=== PATIENT | female | born 1995 | race Hispanic/Latino ===

== ENCOUNTER 2018-12-02 12:19 | Inpatient (IN) | payer MEDICAID ==
[2018-12-02] MEDS ORDERED: LACTATED RINGERS 1,000 ML IV ONE (12:52)
[2018-12-02 13:19] LABS: Bilirubin,Urine NEG (Negative); Blood,Urine NEG (Negative); Color,Urine Yellow (Yellow); Protein,Urine <15 mg/dL mg/dL (Negative); Urobilinogen,Urine < 2.0 mg/dL (<2.0)
[2018-12-02] MEDS ORDERED: BRETHINE SUB-Q ONE (13:33)
[2018-12-02] MEDS ORDERED: TUCKS PAD TP PRN (16:02)
[2018-12-02] MEDS ORDERED: TYLENOL PO PRN (16:02)
[2018-12-02] MEDS ORDERED: MILK OF MAGNESIA PO PRN (16:02)
[2018-12-02] MEDS ORDERED: ZOFRAN IV PRN (16:02)
[2018-12-02] MEDS ORDERED: BENADRYL PO PRN (16:02)
[2018-12-02] MEDS ORDERED: MAGNESIUM SULFATE 4GM/100ML 4 GM/100 ML BAG IV ONE (16:06)
--- NOTE | 2018-12-02 16:14 | History and Physical Report ---
History of Present Illness Date of examination: 12/02/18 Chief complaint: labor contractions History of present illness: EDC Calculations by 1st trimester u/s 02/17/19 Past History : 3 Term Births: 0 Premature Births: 1 Living Children: 1 Para: 1 Mult. Births: 0 Prev : 0 Aborta: 1 Elect. Ab: 1 Spont. Ab: 0 Ectopics: 0 # 1 Delivery date: 2012 Weeks Gestation: 32 labor: yes Delivery type: Infant Sex: Male weight: 4lb3oz Comments: GDM # 2 Delivery date: 2013 Delivery type: EAB Past Medical History: Negative Past Medical History Past Surgical History: urethra stretched- as a baby & age 4 Past Medical History Anesthesia Complications: negative Anemia: negative Autoimmune Disorder: negative Bleeding Disorder: negative Blood Transfusions: negative Breast Disease: negative Diabetes: negative Heart Disease: negative Hypertension: negative Hepatitis/Liver Disease: negative Kidney Disease/UTI: negative Neurologic/Epilepsy/Migraines: negative Phlebitis/Varicosities: negative Psychiatric: negative Pulmonary Disease/Asthma: negative Thyroid Disease: negative Hospitalizations: negative Surgery (Non-cut out marker): urethra stretched- as a baby & age 4 Abnormal PAP: negative KATHARINE Exposure: negative Infertility: negative Uterine Anomaly: negative Uterine Surgery (not C/S): negative Other Gynecologic Problems: negative Medical History Comments: gestational diabetes Family Hx: mom- HTN dad-HTN Infection History Hx of STD: none HIV Risk Eval: low risk Hepatitis B Risk Eval: low risk Personal hx. of genital herpes: no Partner hx. of genital herpes: no Rash, Viral, or Febrile illness since last LMP? no Varicella/Chicken Pox Status: Immunized TB Risk: no Genetic History Congenital Heart Defect: Mom: no Dad: no Leander Disease: Mom: no Dad: no Thalassemia Mom: no Dad: no Neural Tube Defect Mom: no Dad: no Down's Syndrome Mom: yes Dad: no Comments: cousin Haim-Sachs Mom: no Dad: no Sickle Cell Disease/Trait Mom: no Dad: no Hemophilia Mom: no Dad: no Muscular Dystrophy Mom: no Dad: no Cystic Fibrosis Mom: yes Dad: no Comments: cousin Dick Chorea Mom: no Dad: no Mental Retardation Mom: no Dad: no Fragile X Mom: no Dad: no Other Genetic/Chromosomal Disorder Mom: no Dad: no Child w/other defect Mom: no Dad: no Enviromental Exposures Xray Exposure: no Medication, drug, or alcohol use since LMP: no Chemical/Other Exposure: no Exposure to Cat Liter: no Hx of Parvovirus (Fifth Disease): no Occupational Exposure to Children: none Active Medications (reviewed today): None Current Allergies (reviewed today): * LATEX (Critical) Past History Past Medical History: other (see HPI) Past Surgical History: other (see HPI) ABRASIVE WORKER History: other (see HPI) Family/Genetic History: other (see HPI) - Obstetrical History Expected Date of Delivery: 02/17/19 Actual Gestation: 29 Week(s) 0 Day(s) : 3 Para: 1 Hx # Term Pregnancies: 0 Number of Pregnancies: 1 Spontaneous Abortions: 0 Induced : 1 Number of Living Children: 1 Medications and Allergies Allergies Allergy/AdvReac Type Severity Reaction Status Date / Time latex Allergy Hives Verified 12/02/18 12:49 Home Medications Medication Instructions Recorded Confirmed Last Taken Type Hydroxyprogesterone Caproate 250 mg IM QWEEK 12/02/18 12/02/18 11/25/18 12:00 History [Antionette] 1 Vit-Fe Fumar-FA [ 1 tab PO QDAY 12/02/18 12/02/18 12/02/18 09:00 History Vitamin] 1 Active Meds: Active Medications Acetaminophen (Tylenol) 650 mg PO Q4H PRN PRN Reason: Pain MILD(1-3)/Fever >100.5/MCWILLIAMS Al Hydrox/Mg Hydrox/Simethicone (Alum-Mag Hydrox-Simeth [id number]/5ml) 30 ml PO Q6H PRN PRN Reason: Indigestion Betamethasone Acet/Betameth SodPhos (Celestone Soluspan) 12 mg IM Q24HR JUDY Stop: 12/04/18 10:01 Diphenhydramine HCl (Benadryl) 25 mg PO Q6H PRN PRN Reason: Itching Docusate Sodium (Colace) 100 mg PO Q12H PRN PRN Reason: Constipation Magnesium Sulfate (Magnesium Sulfate 40gm/1000ml) 40 gm in 1,000 mls @ 50 mls/hr IV DIRECT JUDY Magnesium Sulfate (Magnesium Sulfate 4gm/100ml) 4 gm in 100 mls @ 300 mls/hr IV ONCE ONE Stop: 12/02/18 16:25 Magnesium Hydroxide (Milk Of Magnesia) 30 ml PO QHS PRN PRN Reason: Laxative Effect Multivitamins/Iron/Calcium ( Vitamin) 1 each PO QDAY JUDY Ondansetron HCl (Zofran) 4 mg IV Q6H PRN PRN Reason: Nausea And Vomiting Witch Elle/Glycerin (Tucks Pad) 1 each TP PRN PRN PRN Reason: Hemorrhoids Zolpidem Tartrate (Ambien) 10 mg PO ONCE PRN PRN Reason: Sleep Review of Systems All systems: negative - Vital Signs Vital signs: Vital Signs Pulse BP 106 H 115/71 12/02/18 12:40 12/02/18 12:40 Temp Pulse Resp BP Pulse Ox 98.5 F 90 18 116/69 12/02/18 13:21 12/02/18 13:59 12/02/18 13:21 12/02/18 13:59 - Physical Exam Breasts: Positive: normal Cardiovascular: Regular rate Lungs: Positive: Clear to auscultation, Normal air movement Abdomen: Positive: normal appearance, soft, normal bowel sounds Genitourinary (Female): Positive: normal external genitalia, normal perenium Vulva: both: normal - Obstetrical Uterine Contraction Monitor Mode: External Cervical Dilatation: 1 (Per commercial account executive) Cervical Effacement Percentage: 0 station: -4 Uterine Contraction Pattern: Regular Uterine Tone Measurement Phase: Contraction Uterine Contraction Intensity: Mild Results Abnormal lab results 12/02/18 Range/Units 12:41 Urine pH 8.0 H (5.0-7.0) All other labs normal. Assessment and Plan 23y/o @ 29 weeks C/o ctx x 3 days, intercourse last night Currently receiving weekly 17OHP injections d/t hx 32wk ptd (due today, requested patient have family bring injection to hospital for administration) - Patient Problems (1) labor in third trimester Current Visit: Yes Status: Acute Qualifiers: labor delivery status: without delivery Qualified Code(s): O60.03 - labor without delivery, third trimester Plan to address problem: Dr. Prater consulted Magnesium sulfate steroids for lung maturity u/s for EFW/CL and presentation Pt to have family to bring in [place] injections ARNAUD for administration. Consult to [facility] (2) 29 weeks gestation of Current Visit: Yes Status: Acute
[2018-12-02] MEDS ORDERED: CELESTONE SOLUSPAN IM ONE (16:36)
[2018-12-02] MEDS: CELESTONE SOLUSPAN IM SCH (17:18)
[2018-12-02] MEDS: MAGNESIUM SULFATE 40GM/1000ML 40 GM/1,000 ML BAG IV SCH (18:09)
--- NOTE | 2018-12-02 18:25 | Event Note ---
Date: 12/02/18 Plan of care d/w pt and support persons. I d/w magnesium, calles cath placement and next steps in management. All questions were addressed and answered and pt agrees with plan of care.
--- NOTE | 2018-12-02 19:27 | Ultrasound Report ---
OBSTETRIC ULTRASOUND INDICATION: Evaluate cervical length, presentation COMPARISON: No prior relevant imaging studies are available for comparison. TECHNIQUE: Transabdominal imaging was performed. FINDINGS: Single viable intrauterine is identified. lie: Cephalic. Heart rate: 153 bpm. measurements are as follows: Biparietal diameter 7.4 cm, 29 weeks 5 days Head circumference 26.3 cm, 28 weeks 4 days Abdominal circumference 26.5 cm, 30 weeks 4 days Femur length 5.1 cm, 27 weeks 1 day Amniotic fluid index is 18.6 cm, within normal limits. No placental abnormalities are seen. Cervix i s closed measuring approximately 4 cm. CONCLUSION: Single viable intrauterine currently in cephalic position. Sonographic gestational age is 2 9 weeks, 0 days. Estimated weight at this time is 3 pounds, 0 ounces. Amniotic fluid inde x is within normal limits. Cervix is closed. Signer Name: Pancho Hallman MD Signed: 12/02/2018 7:23 PM Workstation Name: [id number]
[2018-12-02] MEDS ORDERED: TYLENOL PO ONE (20:10)
[2018-12-02 21:06] LABS: Hematocrit 37.3 % (30.3-42.9); Hemoglobin 12.3 gm/dl (10.1-14.3); Mean Corpuscular HGB Conc 33 % (30-34); Mean Corpuscular Volume 90 fl (79-97); Platelet Count 226 K/mm3 (140-440); Red Blood Count 4.17 M/mm3 (3.65-5.03); Red Cell Distribution Width 14.1 % (13.2-15.2)
[2018-12-02] MEDS: ALUM-MAG HYDROX-SIMETH 200-200-20MG/5ML PO PRN (21:35)
[2018-12-02] MEDS: AMBIEN PO PRN (21:38)
[2018-12-02 22:19] LABS: Basophils % (Manual) 0 % (0.0-1.8); Eosinophils % (Manual) 0 % (0.0-4.3); RBC Morphology Normal; Total Cells Counted 100
[2018-12-03] MEDS ORDERED: LACTATED RINGERS 1,000 ML ONE ×2 (05:32→19:54)
--- NOTE | 2018-12-03 08:22 | Progress Note ---
Assessment and Plan Patient resting in bed, reports feeling well, but that contractions "still won't stop". Dr. Joy and myself at bedside discussing POC with patient. Questions encouraged and answered, patient verbalizes understanding and agrees to POC. (1) labor in third trimester Current Visit: Yes Status: Acute Qualifiers: labor delivery status: without delivery Qualified Code(s): O60.03 - labor without delivery, third trimester Plan to address problem: Magnesium sulfate currently infusing at 2gm/hr as ordered steroids for lung maturity. First dose given at 1718 on 12/02/18. Second dose due this evening u/s for EFW/CL and presentation shows cephalic, 3#, CHANDLER 18.6 Pt to have family to bring in [place] injections ARNAUD for administration. Reports they will seed cone picker injection from pt home this morning and bring here for administration today. Consult to [facility] pending (2) 29 weeks gestation of Current Visit: Yes Status: Acute - Patient Problems (1) 29 weeks gestation of Current Visit: Yes Status: Acute (2) labor in third trimester Current Visit: Yes Status: Acute Qualifiers: labor delivery status: without delivery Qualified Code(s): O60.03 - labor without delivery, third trimester Subjective - Subjective Date of service: 12/03/18 Principal diagnosis: labor/contractions Patient reports: movement normal, contractions ("irregular, sometimes every one minute, sometimes every ten minutes"), no new complaints, no loss of fluid, no vaginal bleeding Objective - Vital Signs Vital Signs: Vital Signs - 12hr 12/02/18 12/02/18 12/02/18 20:43 21:12 21:43 Temperature Pulse Rate 104 H 96 H 98 H Respiratory Rate Blood Pressure 110/72 123/64 100/58 Blood Pressure [Right] O2 Sat by Pulse Oximetry 12/02/18 12/02/18 12/02/18 22:12 22:42 23:12 Temperature Pulse Rate 101 H 98 H 102 H Respiratory Rate Blood Pressure 94/56 102/60 101/60 Blood Pressure [Right] O2 Sat by Pulse Oximetry 12/02/18 12/03/18 12/03/18 23:42 00:12 00:42 Temperature Pulse Rate 94 H 98 H 98 H Respiratory Rate Blood Pressure 95/52 103/65 113/74 Blood Pressure [Right] O2 Sat by Pulse Oximetry 12/03/18 12/03/18 12/03/18 01:12 01:42 02:12 Temperature Pulse Rate 95 H 96 H 96 H Respiratory Rate Blood Pressure 104/69 98/55 101/64 Blood Pressure [Right] O2 Sat by Pulse Oximetry 12/03/18 12/03/18 12/03/18 02:42 03:12 03:42 Temperature Pulse Rate 96 H 92 H 103 H Respiratory Rate Blood Pressure 106/67 97/56 107/63 Blood Pressure [Right] O2 Sat by Pulse Oximetry 12/03/18 12/03/18 12/03/18 04:12 04:42 05:12 Temperature Pulse Rate 87 101 H 96 H Respiratory Rate Blood Pressure 108/60 109/66 98/60 Blood Pressure [Right] O2 Sat by Pulse Oximetry 12/03/18 12/03/18 12/03/18 05:42 06:12 06:42 Temperature Pulse Rate 95 H 93 H 95 H Respiratory Rate Blood Pressure 100/61 127/68 115/62 Blood Pressure [Right] O2 Sat by Pulse Oximetry 12/03/18 12/03/18 12/03/18 07:13 07:43 07:45 Temperature 97.7 F Pulse Rate 100 H 93 H 93 H Respiratory 15 Rate Blood Pressure 134/71 120/62 Blood Pressure 120/62 [Right] O2 Sat by Pulse Oximetry 12/03/18 12/03/18 08:15 08:20 Temperature Pulse Rate 99 H 113 H Respiratory Rate Blood Pressure Blood Pressure [Right] O2 Sat by Pulse 98 96 Oximetry - Exam Cardiovascular: Regular rate, Normal S1, Normal S2 Lungs: Clear to auscultation, Normal air movement Abdomen: Present: normal appearance, soft, normal bowel sounds. Absent: distention, tenderness Vulva: both: normal Uterus: Present: normal, fundal height above umbilicus. Absent: tenderness FHR: auscultation normal, category 1 Uterine Contraction Monitor Mode: External Uterine Contraction Pattern: Irregular Uterine Tone Measurement Phase: Contraction Uterine Contraction Intensity: Mild Extremities: normal Deep Tendon Reflex Grade: Normal +2 - Labs Labs: Abnormal Labs 12/02/18 12/02/18 12/02/18 12:41 20:43 23:20 WBC 12.0 H Seg Neuts % (Manual) 90.0 H Lymphocytes % (Manual) 8.0 L Seg Neutrophils # Man 10.8 H Lymphocytes # (Manual) 1.0 L Magnesium 4.90 H Urine pH 8.0 H 12/03/18 05:28 WBC Seg Neuts % (Manual) Lymphocytes % (Manual) Seg Neutrophils # Man Lymphocytes # (Manual) Magnesium 5.30 H Urine pH Laboratory Results - last 24 hr 12/02/18 12/02/18 12/02/18 12:41 20:43 20:45 WBC 12.0 H RBC 4.17 Hgb 12.3 Hct 37.3 MCV 90 MCH 30 MCHC 33 RDW 14.1 Plt Count 226 Add Manual Diff Complete Total Counted 100 Seg Neutrophils % Supervisor [employer] Seg Neuts % (Manual) 90.0 H Band Neutrophils % 0 Lymphocytes % (Manual) 8.0 L Reactive Lymphs % (Man) 0 Monocytes % (Manual) 2.0 Eosinophils % (Manual) 0 Basophils % (Manual) 0 Metamyelocytes % 0 Myelocytes % 0 Promyelocytes % 0 Blast Cells % 0 Nucleated RBC % Not Reportable Seg Neutrophils # Man 10.8 H Band Neutrophils # 0.0 Lymphocytes # (Manual) 1.0 L Abs React Lymphs (Man) 0.0 Monocytes # (Manual) 0.2 Eosinophils # (Manual) 0.0 Basophils # (Manual) 0.0 Metamyelocytes # 0.0 Myelocytes # 0.0 Promyelocytes # 0.0 Blast Cells # 0.0 WBC Morphology Not Reportable Hypersegmented Neuts Not Reportable Hyposegmented Neuts Not Reportable Hypogranular Neuts Not Reportable Smudge Cells Not Reportable Toxic Granulation Not Reportable Toxic Vacuolation Not Reportable Dohle Bodies Not Reportable Pelger-Huet Anomaly Not Reportable Jaqueline Rods Not Reportable Platelet Estimate Not Reportable Clumped Platelets Not Reportable Plt Clumps, EDTA Not Reportable Large Platelets Not Reportable Giant Platelets Not Reportable Platelet Satelliting Not Reportable Plt Morphology Comment Not Reportable RBC Morphology Normal Dimorphic RBCs Not Reportable Polychromasia Not Reportable Hypochromasia Not Reportable Poikilocytosis Not Reportable Anisocytosis Not Reportable Microcytosis Not Reportable Macrocytosis Not Reportable Spherocytes Not Reportable Pappenheimer Bodies Not Reportable Sickle Cells Not Reportable Target Cells Not Reportable Tear Drop Cells Not Reportable Ovalocytes Not Reportable Helmet Cells Not Reportable [place] Bodies Not Reportable [place] Rings Not Reportable [place] Cells Not Reportable Bite Cells Not Reportable Crenated Cell Not Reportable Elliptocytes Not Reportable Acanthocytes (Spur) Not Reportable Rouleaux Not Reportable Hemoglobin C Crystals Not Reportable Schistocytes Not Reportable Malaria parasites Not Reportable Bret Bodies Not Reportable Hem Pathologist Commnt No Magnesium Urine Color Yellow Urine Turbidity Slightly-cloudy Urine pH 8.0 H Ur Specific [place] 1.020 Urine Protein <15 mg/dl Urine Glucose (UA) Neg Urine Ketones Neg Urine Blood Neg Urine Nitrite Neg Urine Bilirubin Neg Urine Urobilinogen < 2.0 Ur Leukocyte Esterase Neg Urine WBC (Auto) 2.0 Urine RBC (Auto) 2.0 U Epithel Cells (Auto) 4.0 Blood Type A POSITIVE Antibody Screen Negative 12/02/18 12/03/18 23:20 05:28 WBC RBC Hgb Hct MCV MCH MCHC RDW Plt Count Add Manual Diff Total Counted Seg Neutrophils % Seg Neuts % (Manual) Band Neutrophils % Lymphocytes % (Manual) Reactive Lymphs % (Man) Monocytes % (Manual) Eosinophils % (Manual) Basophils % (Manual) Metamyelocytes % Myelocytes % Promyelocytes % Blast Cells % Nucleated RBC % Seg Neutrophils # Man Band Neutrophils # Lymphocytes # (Manual) Abs React Lymphs (Man) Monocytes # (Manual) Eosinophils # (Manual) Basophils # (Manual) Metamyelocytes # Myelocytes # Promyelocytes # Blast Cells # WBC Morphology Hypersegmented Neuts Hyposegmented Neuts Hypogranular Neuts Smudge Cells Toxic Granulation Toxic Vacuolation Dohle Bodies Pelger-Huet Anomaly Jaqueline Rods Platelet Estimate Clumped Platelets Plt Clumps, EDTA Large Platelets Giant Platelets Platelet Satelliting Plt Morphology Comment RBC Morphology Dimorphic RBCs Polychromasia Hypochromasia Poikilocytosis Anisocytosis Microcytosis Macrocytosis Spherocytes Pappenheimer Bodies Sickle Cells Target Cells Tear Drop Cells Ovalocytes Helmet Cells Hernandez-[place] Bodies [place] Rings [place] Cells Bite Cells Crenated Cell Elliptocytes Acanthocytes (Spur) Rouleaux Hemoglobin C Crystals Schistocytes Malaria parasites Bret Bodies Hem Pathologist Commnt Magnesium 4.90 H 5.30 H Urine Color Urine Turbidity Urine pH Ur Specific [place] Urine Protein Urine Glucose (UA) Urine Ketones Urine Blood Urine Nitrite Urine Bilirubin Urine Urobilinogen Ur Leukocyte Esterase Urine WBC (Auto) Urine RBC (Auto) U Epithel Cells (Auto) Blood Type Antibody Screen
[2018-12-03] MEDS ORDERED: CELESTONE SOLUSPAN IM SCH (10:00)
[2018-12-03] MEDS: PRENATAL VITAMIN PO SCH (10:29)
[2018-12-03] MEDS: MAGNESIUM SULFATE 40GM/1000ML 40 GM/1,000 ML BAG IV SCH (14:39)
[2018-12-03] MEDS: CELESTONE SOLUSPAN IM SCH (17:32)
[2018-12-03] MEDS: ALUM-MAG HYDROX-SIMETH 200-200-20MG/5ML PO PRN (18:09)
[2018-12-03 22:57] LABS: Amphetamine Screen,Urine PRESUMPTIVE NEGATIVE; Benzodiazepines Screen,Urine PRESUMPTIVE NEGATIVE; Cannabinoid Screen,Urine PRESUMPTIVE NEGATIVE; Cocaine Screen,Urine PRESUMPTIVE NEGATIVE; Methadone Screen,Urine PRESUMPTIVE NEGATIVE; Opiate Screen,Urine PRESUMPTIVE NEGATIVE
[2018-12-03] MEDS: AMBIEN PO PRN (23:48)
[2018-12-04] MEDS ORDERED: LACTATED RINGERS 1,000 ML ONE (01:10)
--- NOTE | 2018-12-04 08:01 | Progress Note ---
Assessment and Plan Pt resting, states she slept well after ctx stopped and she received Ambien last night. pt reports painful regular ctx last night "I thought I was in labor" but reports they have since resolved. Irritability currently noted on toco. Mag sulfate to continue until 24hrs after second dose of steroids. [facility] notified of consult since there is no evidence of it being called in since it was ordered. Spoke with Dr. Hwang, he recommends FFN and he will see her tomorrow. Order in chart for FFN and nurse David called and instructed no SVE - call provider first. Pt received Savannah injection last night @ time of second BMZ. - Patient Problems (1) labor in third trimester Current Visit: Yes Status: Acute Qualifiers: labor delivery status: without delivery Qualified Code(s): O60.03 - labor without delivery, third trimester Plan to address problem: Continue current management Last mag level 5.2 output adequate. d/c mag @ 1700 tonight (2) 29 weeks gestation of Current Visit: Yes Status: Acute Subjective - Subjective Date of service: 12/04/18 Principal diagnosis: IUP @ 29wk2d: labor/contractions Interval history: EDC Calculations by 1st trimester u/s 02/17/19 Past History : 3 Term Births: 0 Premature Births: 1 Living Children: 1 Para: 1 Mult. Births: 0 Prev : 0 Aborta: 1 Elect. Ab: 1 Spont. Ab: 0 Ectopics: 0 # 1 Delivery date: 2012 Weeks Gestation: 32 labor: yes Delivery type: Infant Sex: Male weight: 4lb3oz Comments: GDM # 2 Delivery date: 2013 Delivery type: EAB Past Medical History: Negative Past Medical History Past Surgical History: urethra stretched- as a baby & age 4 Past Medical History Anesthesia Complications: negative Anemia: negative Autoimmune Disorder: negative Bleeding Disorder: negative Blood Transfusions: negative Breast Disease: negative Diabetes: negative Heart Disease: negative Hypertension: negative Hepatitis/Liver Disease: negative Kidney Disease/UTI: negative Neurologic/Epilepsy/Migraines: negative Phlebitis/Varicosities: negative Psychiatric: negative Pulmonary Disease/Asthma: negative Thyroid Disease: negative Hospitalizations: negative Surgery (Non-laminator printed circuit boards): urethra stretched- as a baby & age 4 Abnormal PAP: negative KATHARINE Exposure: negative Infertility: negative Uterine Anomaly: negative Uterine Surgery (not C/S): negative Other Gynecologic Problems: negative Medical History Comments: gestational diabetes Family Hx: mom- HTN dad-HTN Infection History Hx of STD: none HIV Risk Eval: low risk Hepatitis B Risk Eval: low risk Personal hx. of genital herpes: no Partner hx. of genital herpes: no Rash, Viral, or Febrile illness since last LMP? no Varicella/Chicken Pox Status: Immunized TB Risk: no Genetic History Congenital Heart Defect: Mom: no Dad: no Leander Disease: Mom: no Dad: no Thalassemia Mom: no Dad: no Neural Tube Defect Mom: no Dad: no Down's Syndrome Mom: yes Dad: no Comments: cousin Haim-Sachs Mom: no Dad: no Sickle Cell Disease/Trait Mom: no Dad: no Hemophilia Mom: no Dad: no Muscular Dystrophy Mom: no Dad: no Cystic Fibrosis Mom: yes Dad: no Comments: cousin Dick Chorea Mom: no Dad: no Mental Retardation Mom: no Dad: no Fragile X Mom: no Dad: no Other Genetic/Chromosomal Disorder Mom: no Dad: no Child w/other defect Mom: no Dad: no Enviromental Exposures Xray Exposure: no Medication, drug, or alcohol use since LMP: no Chemical/Other Exposure: no Exposure to Cat Liter: no Hx of Parvovirus (Fifth Disease): no Occupational Exposure to Children: none Active Medications (reviewed today): None Current Allergies (reviewed today): * LATEX (Critical) Patient reports: movement normal, contractions ("every now and then"), no new complaints, no loss of fluid, no vaginal bleeding Objective - Vital Signs Vital Signs: Vital Signs - 12hr 12/03/18 12/03/18 12/03/18 20:00 20:01 20:05 Pulse Rate 98 H 93 H 95 H Respiratory Rate Blood Pressure O2 Sat by Pulse 95 94 94 Oximetry 12/03/18 12/03/18 12/03/18 20:07 20:10 20:13 Pulse Rate 94 H 92 H 96 H Respiratory Rate Blood Pressure O2 Sat by Pulse 94 96 94 Oximetry 12/03/18 12/03/18 12/03/18 20:15 20:24 20:29 Pulse Rate 95 H 90 95 H Respiratory Rate Blood Pressure O2 Sat by Pulse 96 95 95 Oximetry 12/03/18 12/03/18 12/03/18 20:34 20:44 20:45 Pulse Rate 94 H 96 H 101 H Respiratory Rate Blood Pressure 137/60 O2 Sat by Pulse 97 95 Oximetry 12/03/18 12/03/18 12/03/18 20:50 20:55 21:00 Pulse Rate 94 H 95 H 100 H Respiratory Rate Blood Pressure O2 Sat by Pulse 97 97 93 Oximetry 12/03/18 12/03/18 12/03/18 21:05 21:07 21:08 Pulse Rate 94 H 103 H Respiratory 18 Rate Blood Pressure O2 Sat by Pulse 95 94 Oximetry 12/03/18 12/03/18 12/03/18 21:10 21:14 21:15 Pulse Rate 97 H 93 H 96 H Respiratory Rate Blood Pressure O2 Sat by Pulse 96 94 95 Oximetry 12/03/18 12/03/18 12/03/18 21:20 21:28 21:33 Pulse Rate 109 H 92 H 94 H Respiratory Rate Blood Pressure O2 Sat by Pulse 96 96 96 Oximetry 12/03/18 12/03/18 12/03/18 21:38 21:43 21:44 Pulse Rate 89 97 H 90 Respiratory Rate Blood Pressure 106/60 O2 Sat by Pulse 94 96 94 Oximetry 12/03/18 12/03/18 12/03/18 21:48 21:53 21:54 Pulse Rate 103 H 97 H 93 H Respiratory Rate Blood Pressure O2 Sat by Pulse 95 95 94 Oximetry 12/03/18 12/03/18 12/03/18 21:58 22:00 22:03 Pulse Rate 94 H 100 H 98 H Respiratory Rate Blood Pressure O2 Sat by Pulse 95 94 94 Oximetry 12/03/18 12/03/18 12/03/18 22:07 22:08 22:13 Pulse Rate 94 H 95 H 93 H Respiratory Rate Blood Pressure O2 Sat by Pulse 94 94 94 Oximetry 12/03/18 12/03/18 12/03/18 22:18 22:23 22:26 Pulse Rate 98 H 101 H 96 H Respiratory Rate Blood Pressure O2 Sat by Pulse 95 95 94 Oximetry 12/03/18 12/03/18 12/03/18 22:28 22:33 22:37 Pulse Rate 91 H 94 H 91 H Respiratory Rate Blood Pressure O2 Sat by Pulse 95 95 92 Oximetry 12/03/18 12/03/18 12/03/18 22:38 22:43 22:44 Pulse Rate 94 H 105 H 94 H Respiratory Rate Blood Pressure 110/66 O2 Sat by Pulse 91 96 Oximetry 12/03/18 12/03/18 12/03/18 22:45 22:48 22:53 Pulse Rate 100 H 104 H 102 H Respiratory Rate Blood Pressure O2 Sat by Pulse 93 91 94 Oximetry 12/03/18 12/03/18 12/03/18 22:54 22:58 23:01 Pulse Rate 103 H 98 H 92 H Respiratory Rate Blood Pressure O2 Sat by Pulse 94 92 94 Oximetry 12/03/18 12/03/18 12/03/18 23:03 23:07 23:08 Pulse Rate 91 H 92 H 94 H Respiratory Rate Blood Pressure O2 Sat by Pulse 95 94 93 Oximetry 12/03/18 12/03/18 12/03/18 23:15 23:17 23:20 Pulse Rate 94 H 102 H 106 H Respiratory Rate Blood Pressure O2 Sat by Pulse 96 94 95 Oximetry 12/03/18 12/03/18 12/03/18 23:24 23:25 23:29 Pulse Rate 96 H 98 H 87 Respiratory Rate Blood Pressure O2 Sat by Pulse 94 95 94 Oximetry 12/03/18 12/03/18 12/03/18 23:30 23:35 23:37 Pulse Rate 91 H 95 H 96 H Respiratory Rate Blood Pressure O2 Sat by Pulse 94 94 93 Oximetry 12/03/18 12/03/18 12/03/18 23:40 23:44 23:45 Pulse Rate 92 H 100 H 101 H Respiratory Rate Blood Pressure 122/61 O2 Sat by Pulse 95 94 94 Oximetry 12/03/18 12/03/18 12/03/18 23:50 23:55 23:58 Pulse Rate 103 H 100 H 97 H Respiratory Rate Blood Pressure O2 Sat by Pulse 94 97 94 Oximetry 12/04/18 12/04/18 12/04/18 00:00 00:05 00:09 Pulse Rate 92 H 98 H 96 H Respiratory Rate Blood Pressure O2 Sat by Pulse 95 95 94 Oximetry 12/04/18 12/04/18 12/04/18 00:10 00:14 00:15 Pulse Rate 107 H 98 H 97 H Respiratory Rate Blood Pressure O2 Sat by Pulse 94 94 95 Oximetry 12/04/18 12/04/18 12/04/18 00:20 00:25 00:30 Pulse Rate 94 H 94 H 101 H Respiratory Rate Blood Pressure O2 Sat by Pulse 94 94 94 Oximetry 12/04/18 12/04/18 12/04/18 00:34 00:35 00:40 Pulse Rate 94 H 98 H 95 H Respiratory Rate Blood Pressure O2 Sat by Pulse 94 94 94 Oximetry 12/04/18 12/04/18 12/04/18 00:44 00:45 00:50 Pulse Rate 97 H 97 H 99 H Respiratory Rate Blood Pressure 91/52 O2 Sat by Pulse 92 94 94 Oximetry 12/04/18 12/04/18 12/04/18 00:55 00:58 01:00 Pulse Rate 102 H 94 H 98 H Respiratory Rate Blood Pressure O2 Sat by Pulse 94 94 93 Oximetry 12/04/18 12/04/18 12/04/18 01:05 01:10 01:15 Pulse Rate 98 H 104 H 95 H Respiratory Rate Blood Pressure O2 Sat by Pulse 94 94 93 Oximetry 12/04/18 12/04/18 12/04/18 01:16 01:20 01:25 Pulse Rate 97 H 98 H 95 H Respiratory Rate Blood Pressure O2 Sat by Pulse 94 93 92 Oximetry 12/04/18 12/04/18 12/04/18 01:30 01:35 01:40 Pulse Rate 95 H 96 H 98 H Respiratory Rate Blood Pressure O2 Sat by Pulse 92 92 93 Oximetry 12/04/18 12/04/18 12/04/18 01:44 01:45 01:50 Pulse Rate 112 H 111 H 96 H Respiratory Rate Blood Pressure 109/60 O2 Sat by Pulse 94 94 91 Oximetry 12/04/18 12/04/18 12/04/18 01:55 02:00 02:05 Pulse Rate 95 H 91 H 89 Respiratory Rate Blood Pressure O2 Sat by Pulse 92 93 94 Oximetry 12/04/18 12/04/18 12/04/18 02:10 02:15 02:20 Pulse Rate 88 89 90 Respiratory Rate Blood Pressure O2 Sat by Pulse 93 92 91 Oximetry 12/04/18 12/04/18 12/04/18 02:25 02:30 02:35 Pulse Rate 90 90 88 Respiratory Rate Blood Pressure O2 Sat by Pulse 92 91 92 Oximetry 12/04/18 12/04/18 12/04/18 02:40 02:44 02:45 Pulse Rate 95 H 93 H 90 Respiratory Rate Blood Pressure 98/60 O2 Sat by Pulse 94 93 Oximetry 12/04/18 12/04/18 12/04/18 02:50 02:55 03:00 Pulse Rate 84 92 H 91 H Respiratory Rate Blood Pressure O2 Sat by Pulse 92 92 91 Oximetry 12/04/18 12/04/18 12/04/18 03:05 04:31 04:36 Pulse Rate 91 H 98 H 89 Respiratory Rate Blood Pressure O2 Sat by Pulse 94 96 95 Oximetry 12/04/18 12/04/18 12/04/18 04:41 04:45 04:46 Pulse Rate 90 95 H 92 H Respiratory Rate Blood Pressure 97/52 O2 Sat by Pulse 96 94 Oximetry 12/04/18 12/04/18 12/04/18 04:51 04:56 04:57 Pulse Rate 93 H 88 89 Respiratory Rate Blood Pressure O2 Sat by Pulse 94 94 94 Oximetry 12/04/18 12/04/18 12/04/18 05:01 05:02 05:06 Pulse Rate 86 90 88 Respiratory Rate Blood Pressure O2 Sat by Pulse 95 94 94 Oximetry 12/04/18 12/04/18 12/04/18 05:07 05:11 05:16 Pulse Rate 90 86 91 H Respiratory Rate Blood Pressure O2 Sat by Pulse 94 94 94 Oximetry 12/04/18 12/04/18 12/04/18 05:21 05:29 05:34 Pulse Rate 95 H 91 H 90 Respiratory Rate Blood Pressure O2 Sat by Pulse 96 96 95 Oximetry 12/04/18 12/04/18 12/04/18 05:39 05:44 05:47 Pulse Rate 90 89 89 Respiratory Rate Blood Pressure 92/52 O2 Sat by Pulse 95 96 94 Oximetry 12/04/18 12/04/18 12/04/18 05:49 05:54 05:59 Pulse Rate 93 H 91 H 91 H Respiratory Rate Blood Pressure O2 Sat by Pulse 95 95 95 Oximetry 12/04/18 12/04/18 12/04/18 06:04 06:09 06:11 Pulse Rate 95 H 92 H 90 Respiratory Rate Blood Pressure O2 Sat by Pulse 95 95 94 Oximetry 12/04/18 12/04/18 12/04/18 06:14 06:16 06:19 Pulse Rate 92 H 91 H 91 H Respiratory Rate Blood Pressure O2 Sat by Pulse 95 94 95 Oximetry 12/04/18 12/04/18 12/04/18 06:22 06:24 06:28 Pulse Rate 115 H 94 H 89 Respiratory Rate Blood Pressure O2 Sat by Pulse 94 95 94 Oximetry 12/04/18 12/04/18 12/04/18 06:29 06:34 06:39 Pulse Rate 95 H 91 H 98 H Respiratory Rate Blood Pressure O2 Sat by Pulse 95 94 96 Oximetry 12/04/18 12/04/18 12/04/18 06:43 06:44 07:40 Pulse Rate 101 H 96 H 101 H Respiratory Rate Blood Pressure 93/52 O2 Sat by Pulse 94 95 95 Oximetry 12/04/18 12/04/18 12/04/18 07:44 07:45 07:50 Pulse Rate 97 H 96 H 96 H Respiratory Rate Blood Pressure 113/69 O2 Sat by Pulse 96 94 Oximetry 12/04/18 07:55 Pulse Rate 97 H Respiratory Rate Blood Pressure O2 Sat by Pulse 94 Oximetry - Exam Breasts: normal Cardiovascular: Regular rate Lungs: Clear to auscultation, Normal air movement Abdomen: Present: normal appearance, soft. Absent: tenderness Vulva: both: normal Uterus: Present: normal FHR: auscultation normal, category 1 Uterine Contraction Monitor Mode: External Uterine Contraction Pattern: Irregular Uterine Tone Measurement Phase: Resting Extremities: normal Deep Tendon Reflex Grade: Normal +2 - Labs Labs: Abnormal Labs 12/02/18 12/02/18 12/02/18 12:41 20:43 23:20 WBC 12.0 H Seg Neuts % (Manual) 90.0 H Lymphocytes % (Manual) 8.0 L Seg Neutrophils # Man 10.8 H Lymphocytes # (Manual) 1.0 L Magnesium 4.90 H Urine pH 8.0 H 12/03/18 12/03/18 12/03/18 05:28 10:57 17:25 WBC Seg Neuts % (Manual) Lymphocytes % (Manual) Seg Neutrophils # Man Lymphocytes # (Manual) Magnesium 5.30 H 5.60 H 5.40 H Urine pH 12/03/18 12/04/18 23:08 05:20 WBC Seg Neuts % (Manual) Lymphocytes % (Manual) Seg Neutrophils # Man Lymphocytes # (Manual) Magnesium 5.20 H 5.20 H Urine pH Laboratory Results - last 24 hr 12/02/18 12/03/18 12/03/18 22:33 10:57 17:25 Magnesium 5.60 H 5.40 H Urine Opiates Screen Presumptive negative Urine Methadone Screen Presumptive negative Ur Barbiturates Screen Presumptive negative Ur Phencyclidine Scrn Presumptive negative Ur Amphetamines Screen Presumptive negative U Benzodiazepines Scrn Presumptive negative Urine Cocaine Screen Presumptive negative U Marijuana (THC) Screen Presumptive negative Drugs of Abuse Note Disclamer 12/03/18 12/04/18 23:08 05:20 Magnesium 5.20 H 5.20 H Urine Opiates Screen Urine Methadone Screen Ur Barbiturates Screen Ur Phencyclidine Scrn Ur Amphetamines Screen U Benzodiazepines Scrn Urine Cocaine Screen U Marijuana (THC) Screen Drugs of Abuse Note
[2018-12-04] MEDS: LACTATED RINGERS 1,000 ML IV SCH ×2 (09:34→21:47)
[2018-12-04] MEDS: ALUM-MAG HYDROX-SIMETH 200-200-20MG/5ML PO PRN ×2 (09:37→21:18)
[2018-12-04] MEDS: COLACE PO PRN (09:37)
[2018-12-04] MEDS: PRENATAL VITAMIN PO SCH (09:39)
[2018-12-04] MEDS: MAGNESIUM SULFATE 40GM/1000ML 40 GM/1,000 ML BAG IV SCH (09:40)
[2018-12-04] MEDS: PROCARDIA*For Tocolysis only PO SCH (17:29)
[2018-12-04] MEDS ORDERED: AMBIEN PO PRN (19:58)
--- NOTE | 2018-12-05 08:33 | Progress Note ---
Assessment and Plan - Patient Problems (1) labor in third trimester Onset Date: ~12/05/18 Current Visit: Yes Status: Acute Qualifiers: labor delivery status: without delivery Qualified Code(s): O60.03 - labor without delivery, third trimester Plan to address problem: pt in good spirits states ctx are only perceived every now and then Pt states "[place]" VSS Cat 1 strip IUP @ 29 weeks with ctx P: will d/c today ater CULLEN sees pt Pt aware and agrees with POC Will RX Procardia for d/c consulted. Subjective - Subjective Date of service: 12/05/18 (pt desires d/c if possible) Principal diagnosis: IUP @ 29wk2d: labor/contractions Patient reports: movement normal, contractions ("every now and then"), no new complaints, no loss of fluid, no vaginal bleeding Objective - Vital Signs Vital Signs: Vital Signs - 12hr 12/04/18 12/05/18 12/05/18 21:28 08:07 08:17 Temperature 98.1 F Pulse Rate 78 78 Respiratory 18 Rate Blood Pressure 112/62 115/56 O2 Sat by Pulse 97 Oximetry 12/05/18 08:22 Temperature Pulse Rate 73 Respiratory Rate Blood Pressure O2 Sat by Pulse 98 Oximetry - Exam Breasts: deferred Cardiovascular: Regular rate Lungs: Normal air movement Abdomen: Present: normal appearance, soft. Absent: distention, tenderness Uterus: Present: normal FHR: auscultation normal, category 1 Uterine Contraction Pattern: Irregular Uterine Tone Measurement Phase: Resting Uterine Contraction Intensity: Mild Extremities: normal Deep Tendon Reflex Grade: Normal +2 - Labs Labs: Abnormal Labs 12/02/18 12/02/18 12/02/18 12:41 20:43 23:20 WBC 12.0 H Seg Neuts % (Manual) 90.0 H Lymphocytes % (Manual) 8.0 L Seg Neutrophils # Man 10.8 H Lymphocytes # (Manual) 1.0 L Magnesium 4.90 H Urine pH 8.0 H 12/03/18 12/03/18 12/03/18 05:28 10:57 17:25 WBC Seg Neuts % (Manual) Lymphocytes % (Manual) Seg Neutrophils # Man Lymphocytes # (Manual) Magnesium 5.30 H 5.60 H 5.40 H Urine pH 12/03/18 12/04/18 12/04/18 23:08 05:20 12:07 WBC Seg Neuts % (Manual) Lymphocytes % (Manual) Seg Neutrophils # Man Lymphocytes # (Manual) Magnesium 5.20 H 5.20 H 5.10 H Urine pH Laboratory Results - last 24 hr 12/04/18 12/05/18 12:07 05:00 Magnesium 5.10 H Fibronectin Positive
[2018-12-05] MEDS: PRENATAL VITAMIN PO SCH (10:31)
[2018-12-05] MEDS: ALUM-MAG HYDROX-SIMETH 200-200-20MG/5ML PO PRN (10:31)
[2018-12-05] MEDS: COLACE PO PRN (10:31)
[2018-12-05] MEDS: PROCARDIA*For Tocolysis only PO SCH (10:31)
[2018-12-05 12:35] VITALS: BP 116/58
--- NOTE | 2018-12-05 12:53 | Discharge Summary ---
Providers - Providers Date of Admission: 12/02/18 16:46 Date of discharge: 12/05/18 (d/c today pt agrees with POC) Attending physician: LUCINDA TRAVIS 12/02/18 16:07 Consult to Physician [CONS] Routine Comment: Consulting Provider: CLEM COOPER Physician Instructions: Existing pt of [facility] Reason For Exam: labor @ 29 weeks Primary care physician: LUCINDA TRAVIS Hospitalization Reason for admission: labor (w/o delivery) Hospital course: arrest of labor BMZ given Pt stable Condition at discharge: Good Disposition: DC-01 TO HOME OR SELFCARE - Discharge Diagnoses (1) labor in third trimester Status: Acute Qualifiers: labor delivery status: without delivery Qualified Code(s): O60.03 - labor without delivery, third trimester Comment: appt in office Friday12-08-18 Plan - Discharge Medications Prescriptions: NIFEdipine [Procardia] 10 mg PO Q6HR #60 capsule NIFEdipine XL [Procardia Xl] 30 mg PO QDAY #30 tablet - Provider Discharge Summary Activity: routine Diet: other (increase hydration WATER) Instructions: routine Additional instructions: [] Smoking cessation referral if applicable(refer to patient education folder for contact #) [] Refer to [facility] Booklet Call your doctor immediately for: * Fever > 100.5 * Heavy vaginal bleeding ( >1 pad per hour) * Severe persistent headache * Shortness of breath * Reddened, hot, painful area to leg or breast * Drainage or odor from incision. * Keep incision clean and dry at all times and follow doctor's instructions rega rding bathing/showering - Follow up plan Follow up: LUCINDA TRAVIS MD [Primary Care Provider] - 12/08/18 9:45 am (Please keep appointment as scheduled. Take medications as needed for cramping/contractions. Call [phone] with any questions.)
== END 2018-12-05 13:15 | disposition home or self-care (01) | DRG 778 ==
LOC: TRG 12:19 → LD 16:46
PROVIDERS: ADMIT Obstetrics & Gynecology; ATTEND Obstetrics & Gynecology
DX: O60.03 Preterm labor without delivery, third trimester (principal); Z91.040 Latex allergy status; Z82.49 Family history of ischemic heart disease and other diseases of the circulatory system; Z3A.29 29 weeks gestation of pregnancy
CPT/HCPCS: 36415; 59025; 76816; 80307; 81001; 82731; 83735; 85007; 85025; 86850; 86900; 86901; 96360; 96361; G0378; J0702; J2405; J3105; J3475; J7120

== ENCOUNTER 2018-12-23 07:45 | Observation (INO) | payer MEDICAID ==
[2018-12-23] MEDS ORDERED: LACTATED RINGERS 1,000 ML ONE (08:40)
[2018-12-23] MEDS ORDERED: LACTATED RINGERS 500 ML IV ONE (09:03)
--- NOTE | 2018-12-23 10:14 | Event Note ---
Date: 12/23/18 32w0d presents to triage with c/o contractions every 5 minutes and vomiting since waking this morning. She denies any LOF or VB. +FM. Ffn collected. SVE /-3, Vtx, IBOW. Pt was 1.5/2 cm on discharge 3 weeks ago after admission for same complaint, mag infusion, BMX series completion on 12/02, 12/03. Ctx on TOCO are approx q5m, palpating mild, patient rated pain 6/10, appears to be in no distress during contractions. Pt reports she is still taking procardia and 17ohp as directed. She states that she refuses magnesium infusion. Discussed pt assessment and hx with Dr. Gonzalez who determined POC for terb series, continued monitoring. Will continue fluids and monitoring and reassess for further orders. No repeat BMZ at this time per Dr. Gonzalez. ANALI Lee notified of POC, will send ffn and being terb at this time. Aware to keep pt on cont. POX.
[2018-12-23] MEDS: LACTATED RINGERS 1,000 ML IV SCH ×2 (10:40→12:59)
[2018-12-23 10:55] LABS: Bacteria,Urine 2+ /HPF (Negative); Bilirubin,Urine NEG (Negative); Blood,Urine NEG (Negative); Color,Urine Yellow (Yellow); Mucus,Urine FEW /HPF; Urobilinogen,Urine < 2.0 mg/dL (<2.0)
[2018-12-23] MEDS ORDERED: LACTATED RINGERS 1,000 ML IV SCH (11:00)
[2018-12-23] MEDS: TERBUTALINE 1 MG/1 ML INJ SUB-Q SCH ×3 (11:01→12:45)
[2018-12-23 13:03] VITALS: BP 110/60
--- NOTE | 2018-12-23 15:06 | Event Note ---
Date: 12/23/18 Late entry 1300: Patient reports feeling "so much better". She reports contractions spaced out to every 25 minutes and no she doesn't feel them at all. Irregular mild contractions noted on TOCO. SVE is unchanged from prior exam, leonardo CRAMER. VSSAF. Per Dr. Gonzalez, patient may discharge home at this time, will f/u in office in 1 week, sooner if needed. Pt to continue taking procardia 30mg XL daily. PTL s/s reviewed with patient. RN aware of discharge order.
== END 2018-12-23 13:55 | disposition home or self-care (01) ==
LOC: TRG 07:45 → LD 08:20 → TRG 08:21 → UNDOADMIN 08:22 → LD 08:22
PROVIDERS: ADMIT Obstetrics & Gynecology; ATTEND Obstetrics & Gynecology
DX: O62.9 Abnormality of forces of labor, unspecified (principal); Z3A.32 32 weeks gestation of pregnancy
CPT/HCPCS: 36415; 81001; 82731; 96372; G0378; J3105; J7120

== ENCOUNTER 2019-01-05 00:04 | Outpatient (CLI) | payer MEDICAID ==
[2019-01-05] MEDS ORDERED: LACTATED RINGERS 1,000 ML ONE (00:43)
[2019-01-05] MEDS ORDERED: LACTATED RINGERS 1,000 ML IV ONE (00:55)
[2019-01-05] MEDS ORDERED: DOCUSATE SODIUM 100 MG CAP PO PRN (01:05)
[2019-01-05] MEDS ORDERED: ACETAMINOPHEN 325 MG TAB PO PRN (01:05)
[2019-01-05] MEDS: TERBUTALINE 1 MG/1 ML INJ SUB-Q SCH ×3 (01:05→03:09)
[2019-01-05 01:38] LABS: Basophils % (Auto) 0.2 % (0.0-1.8); Eosinophils % (Auto) 0.2 % (0.0-4.3); Hematocrit 40.8 % (30.3-42.9); Hemoglobin 13.5 gm/dl (10.1-14.3); Lymphocytes # (Auto) 1.1 K/mm3 (1.2-5.4); Lymphocytes % (Auto) 7.1 % (13.4-35.0); Mean Corpuscular HGB Conc 33 % (30-34); Mean Corpuscular Volume 90 fl (79-97); Monocytes # (Auto) 0.4 K/mm3 (0.0-0.8); Monocytes % (Auto) 2.5 % (0.0-7.3); Platelet Count 204 K/mm3 (140-440); Red Blood Count 4.52 M/mm3 (3.65-5.03); Red Cell Distribution Width 14.4 % (13.2-15.2)
[2019-01-05] MEDS: ONDANSETRON 4 MG/2 ML INJ IV PRN ×2 (01:39→06:24)
[2019-01-05] MEDS: LACTATED RINGERS 1,000 ML IV SCH ×2 (01:40→04:31)
[2019-01-05 01:45] LABS: Bilirubin,Urine NEG (Negative); Blood,Urine NEG (Negative); Color,Urine Amber (Yellow); Mucus,Urine 2+ /HPF; Urobilinogen,Urine < 2.0 mg/dL (<2.0)
[2019-01-05] MEDS ORDERED: ACETAMINOPHEN 500 MG TAB PO ONE (02:04)
[2019-01-05] MEDS ORDERED: FAMOTIDINE 20 MG/2 ML INJ IV ONE (02:06)
--- NOTE | 2019-01-05 03:13 | Event Note ---
Date: 01/05/19 Patient presents to triage with c/o contractions. Reports they were irregular throughout the day, then she went to sleep, they awoke her stronger and more regular. She reports feeling them q2-3 minutes, rates pain 8/10. She also states she has been vomiting. She reports her 5 y.o. son has gasteroenteritis and she has been with him at urgent care all day today. SVE per veterinary assistant is 4/60/-1, no change from exam in office 1 week ago. Patient completed BMZ series on 12/03. She is currently taking 17ohp and procardia xl 30 mg daily, reports last dose was at 9 pm. She states "I will not do magnesium again". Zofran, pepcid, IV fluids, and terb series ordered. Will continue to monitor for cervical change. Dr. Prater aware of pt assessment and POC.
--- NOTE | 2019-01-05 06:24 | Event Note ---
Date: 01/05/19 Patient sleeping comfortably in bed, arises easily to speech. Reports she feels better, sleeping well through contractions, does not feel any contractions at current, none noted on TOCO. Cat 1 FHTs. Pt reports nausea is "a little better". Pt then vomited as she was repositioning in bed. Will continue IV fluids and zofran and monitoring at this time.
--- NOTE | 2019-01-05 08:05 | Event Note ---
Date: 01/05/19 pt sleeping, reports no emesis since SVE. pt has not yet tried to eat food. Will do PO challenge and d/c home if tolerates soft diet. CAT 1 tracing
--- NOTE | 2019-01-05 09:51 | Discharge Summary ---
Providers - Providers Date of discharge: 01/05/19 Attending physician: LUCINDA TRAVIS Primary care physician: ROSA LOPEZ Hospitalization Reason for admission: observation (n/v) Discharge diagnosis: other (IUP @ 34 week, nausea & vomiting resolved) Condition at discharge: Good Disposition: DC-01 TO HOME OR SELFCARE - Discharge Diagnoses (1) Nausea and vomiting in Status: Acute (2) 34 weeks gestation of Status: Acute Plan - Provider Discharge Summary Activity: routine Diet: other (bland diet, BRAT) Additional instructions: [] Smoking cessation referral if applicable(refer to patient education folder for contact #) [] Refer to [facility] Booklet Call your doctor immediately for: * Fever > 100.5 * Heavy vaginal bleeding ( >1 pad per hour) * Severe persistent headache * Shortness of breath * Reddened, hot, painful area to leg or breast * Drainage or odor from incision. * Keep incision clean and dry at all times and follow doctor's instructions regarding bathing/showering - Follow up plan Follow up: ROSA LOPEZ MD [Primary Care Provider] - 7 Days
[2019-01-05] MEDS ORDERED: PRENATAL VIT27-FE FUMARATE-FOLIC ACID VIT TAB PO SCH (10:00)
--- NOTE | 2019-01-05 10:03 | History and Physical Report ---
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 no EDC Calculations LMP: 02/22/2019 Past History : 3 Term Births: 0 Premature Births: 1 Living Children: 1 Para: 1 Mult. Births: 0 Prev : 0 Aborta: 1 Elect. Ab: 1 Spont. Ab: 0 Ectopics: 0 # 1 Delivery date: 2012 Weeks Gestation: 32 labor: yes Delivery type: Sex: Male weight: 4lb3oz Comments: GDM # 2 Delivery date: 2013 Delivery type: EAB Past Medical History: Negative Past Medical History Past Surgical History: urethra stretched- as a baby & age 4 Past Medical History Anesthesia Complications: negative Anemia: negative Autoimmune Disorder: negative Bleeding Disorder: negative Blood Transfusions: negative Breast Disease: negative Diabetes: negative Heart Disease: negative Hypertension: negative Hepatitis/Liver Disease: negative Kidney Disease/UTI: negative Neurologic/Epilepsy/Migraines: negative Phlebitis/Varicosities: negative Psychiatric: negative Pulmonary Disease/Asthma: negative Thyroid Disease: negative Hospitalizations: negative Surgery (Non-gusset folder): urethra stretched- as a baby & age 4 Abnormal PAP: negative KATHARINE Exposure: negative Infertility: negative Uterine Anomaly: negative Uterine Surgery (not C/S): negative Other Gynecologic Problems: negative Medical History Comments: gestational diabetes Family Hx: mom- HTN dad-HTN Infection History Hx of STD: none HIV Risk Eval: low risk Hepatitis B Risk Eval: low risk Personal hx. of genital herpes: no Partner hx. of genital herpes: no Rash, Viral, or Febrile illness since last LMP? no Varicella/Chicken Pox Status: Immunized TB Risk: no Genetic History Congenital Heart Defect: Mom: no Dad: no Leander Disease: Mom: no Dad: no Thalassemia Mom: no Dad: no Neural Tube Defect Mom: no Dad: no Down's Syndrome Mom: yes Dad: no Comments: cousin Haim-Sachs Mom: no Dad: no Sickle Cell Disease/Trait Mom: no Dad: no Hemophilia Mom: no Dad: no Muscular Dystrophy Mom: no Dad: no Cystic Fibrosis Mom: yes Dad: no Comments: cousin Dick Chorea Mom: no Dad: no Mental Retardation Mom: no Dad: no Fragile X Mom: no Dad: no Other Genetic/Chromosomal Disorder Mom: no Dad: no Child w/other defect Mom: no Dad: no Enviromental Exposures Xray Exposure: no Medication, drug, or alcohol use since LMP: no Chemical/Other Exposure: no Exposure to Cat Liter: no Hx of Parvovirus (Fifth Disease): no Occupational Exposure to Children: none Active Medications (reviewed today): None Current Allergies (reviewed today): * LATEX (Critical) Past History Past Medical History: other (see HPI) Past Surgical History: other (see HPI) [employer] History: fibroids (see HPI), other (see HPI) Family/Genetic History: other (see HPI) Social history: other (see HPI) - Obstetrical History Expected Date of Delivery: 02/17/19 Actual Gestation: 33 Week(s) 6 Day(s) : 3 Para: 1 Number of Pregnancies: 1 Number of Living Children: 1 Medications and Allergies Allergies Allergy/AdvReac Type Severity Reaction Status Date / Time latex Allergy Hives Verified 12/02/18 12:49 Home Medications Medication Instructions Recorded Confirmed Last Taken Type Hydroxyprogesterone Caproate 250 mg IM QWEEK 12/02/18 01/05/19 11/25/18 12:00 History [[place]] 1 Vit-Fe Fumar-FA [ 1 tab PO QDAY 12/02/18 01/05/19 1 Day Ago History Vitamin] ~01/04/19 NIFEdipine XL [Procardia Xl] 30 mg PO QDAY #30 tablet 12/05/18 01/05/19 Unknown Rx NIFEdipine [Procardia] 10 mg PO Q6HR #60 capsule 12/05/18 01/05/19 1 Day Ago Rx ~01/04/19 Active Meds: Active Medications Acetaminophen (Tylenol) 650 mg PO Q4H PRN PRN Reason: Pain MILD(1-3)/Fever >100.5/[facility] Docusate Sodium (Colace) 100 mg PO Q12H PRN PRN Reason: Constipation Lactated Ringer's (Lactated Ringers) 1,000 mls @ 125 mls/hr IV DIRECT JUDY Last Admin: 01/05/19 04:31 Dose: 125 mls/hr Documented by: Multivitamins/Iron/Calcium ( Vitamin) 1 each PO QDAY [facility] Ondansetron HCl (Zofran) 4 mg IV Q6H PRN PRN Reason: Nausea And Vomiting Last Admin: 01/05/19 06:24 Dose: 4 mg Documented by: Terbutaline Sulfate (Brethine) 0.25 mg SUB-Q Q20MIN [facility] Stop: 01/07/19 01:01 Last Admin: 01/05/19 03:09 Dose: 0.25 mg Documented by: Review of Systems All systems: negative Gastrointestinal: vomiting (x2 occasions prior to arrival to triage) Genitourinary: contractions (awoke her from sleep approx 10 pm) - Vital Signs Vital signs: Vital Signs Pulse BP 116 H 122/72 01/05/19 00:32 01/05/19 00:32 Temp Pulse Resp BP Pulse Ox 98.1 F 98 H 120/72 97 01/05/19 07:49 01/05/19 09:54 01/05/19 07:48 01/05/19 09:54 - Physical Exam Breasts: Cardiovascular: Regular rate, Normal S1, Normal S2 Lungs: Positive: Clear to auscultation, Normal air movement Abdomen: Positive: normal appearance, soft, normal bowel sounds. Negative: distention, tenderness Genitourinary (Female): Positive: normal external genitalia, normal perenium Vulva: both: normal Vagina: Positive: normal moisture. Negative: discharge Cervix: Negative: lesion, discharge Uterus: Positive: normal size, normal contour Adnexa: both: normal Anus/Rectum: Positive: normal perianal skin, heme negative. Negative: rectal mass, hemorrhoids Extremities: Deep Tendon Reflex Grade: Normal +2 - Obstetrical FHR: auscultation normal Uterine Contraction Monitor Mode: External Cervical Dilatation: 4 (per rubber insulator) Cervical Effacement Percentage: 60 station: -1 Uterine Contraction Pattern: Irregular Uterine Contraction Intensity: Mild Results Result Diagrams: 01/05/19 01:00 Abnormal lab results 01/05/19 01/05/19 Range/Units 01:00 01:00 WBC 15.1 H (4.5-11.0) K/mm3 Lymph % (Auto) 7.1 L (13.4-35.0) % Lymph # 1.1 L (1.2-5.4) K/mm3 Seg Neutrophils % 90.0 H (40.0-70.0) % Seg Neutrophils # 13.6 H (1.8-7.7) K/mm3 Urine WBC (Auto) 21.0 H (0.0-6.0) /HPF U Epithel Cells (Auto) 20.0 H (0-13.0) /HPF All other labs normal. Assessment and Plan late entry- 308: Patient presents to triage with c/o contractions. Reports they were irregular throughout the day, then she went to sleep, they awoke her stronger and more regular. She reports feeling them q2-3 minutes, rates pain 8/10. She also states she has been vomiting. She reports her 5 y.o. son has gasteroenteritis and she has been with him at urgent care all day today. SVE per rubber insulator is 460/-1, no change from exam in office 1 week ago. Patient completed BMZ series on 12/03. She is currently taking 17ohp and procardia xl 30 mg daily, reports last dose was at 9 pm. She states "I will not do magnesium again". Zofran, pepcid, IV fluids, and terb series ordered. Will continue to monitor for cervical change. Dr. Prater aware of pt assessment and POC.
[2019-01-05 10:47] VITALS: BP 108/68
== END 2019-01-05 11:05 | disposition home or self-care (01) ==
LOC: TRG 00:04 → LD 01:10 → TRG 11:05
PROVIDERS: ATTEND Obstetrics & Gynecology
DX: O26.893 Other specified pregnancy related conditions, third trimester (principal); Z3A.33 33 weeks gestation of pregnancy; J45.909 Unspecified asthma, uncomplicated
CPT/HCPCS: 36415; 81001; 85025; 86592; 86850; 86900; 86901; 87086; J2405; J3105; J7120

== ENCOUNTER 2019-01-09 20:03 | Outpatient (CLI) | payer MEDICAID ==
[2019-01-09] MEDS ORDERED: LACTATED RINGERS 500 ML IV ONE (21:00)
--- NOTE | 2019-01-09 21:46 | Ultrasound Report ---
US OB limited INDICATION / CLINICAL INFORMATION: CHECK CHANDLER. COMPARISON: 12/02/2018. FINDINGS: Single viable intrauterine fetus is in cephalic presentation with heart rate of 131. Amniotic fluid i ndex is 14 cm, within normal limits. There is a grade 2 posterior placenta which appears unremarkable . IMPRESSION: 1. Amniotic fluid index is normal. 2. No abnormalities are seen on this limited exam. Signer Name: Pancho Hallman MD Signed: 01/09/2019 9:42 PM Workstation Name: [id number]
[2019-01-09 21:57] LABS: Bilirubin,Urine NEG (Negative); Blood,Urine NEG (Negative); Color,Urine Yellow (Yellow); Mucus,Urine FEW /HPF; Protein,Urine <15 mg/dL mg/dL (Negative); Urobilinogen,Urine < 2.0 mg/dL (<2.0)
[2019-01-09 22:02] VITALS: BP 134/81
[2019-01-09] MEDS ORDERED: VISTARIL PO ONE (22:58)
== END 2019-01-09 23:09 | disposition home or self-care (01) ==
LOC: TRG 20:03
PROVIDERS: ATTEND Obstetrics & Gynecology
DX: O62.9 Abnormality of forces of labor, unspecified (principal); Z3A.34 34 weeks gestation of pregnancy; O99.333 Smoking (tobacco) complicating pregnancy, third trimester
CPT/HCPCS: 76815; 81001; 87086; J7120; Q0177